=== PATIENT | female | born 2000 | race Hispanic/Latino ===

== ENCOUNTER 2021-02-28 21:34 | Emergency (ER) | payer BC | END 2021-02-28 22:44 | disposition home or self-care (01) | LOC: CSHERS 21:34 | DX: K60.2 Anal fissure, unspecified (principal); K59.00 Constipation, unspecified; K62.5 Hemorrhage of anus and rectum | CPT/HCPCS: 99283 ==

== ENCOUNTER 2022-03-06 14:27 | Emergency (ER) | payer BC ==
[2022-03-06] MEDS ORDERED: Bicillin LA 1.2 MILLION UNITS/2 ML SYRINGE IM SCH (15:30)
== END 2022-03-06 16:11 | disposition home or self-care (01) ==
LOC: CSHERS 14:27
DX: J02.0 Streptococcal pharyngitis (principal)
CPT/HCPCS: 96372; 99283; J0561